=== PATIENT | male | born 1950 | race Caucasian/White ===

== ENCOUNTER → 2022-06-10 | Outpatient (CLI) | payer BC ==
[~2022-06-10] MED LIST: ASPIR 8181 MG PO; ASPIRIN81 MG PO; ATORVASTATIN CA20 MG PO; CLOPIDOGREL75 MG PO; CRESTOR20 MG PO; NEXIUM40 MG PO; NITROSTAT0.4 MG SL; PREDNISONE 20 M20 MG PO; PREDNISONE10 MG PO; PRINIVIL20 MG PO; PROTONIX40 MG PO; RANEXA500 MG PO; SYNTHROID150 MCG PO; TOPROL XL25 MG PO
== END ==
LOC: HEART 5 08:42
DX: I20.0 Unstable angina (principal); R94.39 Abnormal result of other cardiovascular function study; I10 Essential (primary) hypertension; R06.02 Shortness of breath; I27.20 Pulmonary hypertension, unspecified
CPT/HCPCS: 78452; 93306; A9502; J2785

== ENCOUNTER → 2022-06-22 | Outpatient (CLI) | payer BC | LOC: EXRD 13:13 | DX: I65.29 Occlusion and stenosis of unspecified carotid artery (principal) | CPT/HCPCS: 93880 ==

== ENCOUNTER → 2022-06-24 | Outpatient (CLI) | payer BC ==
[~2022-06-24] MED LIST changes: +NORVASC5 MG PO; -PRINIVIL20 MG PO; +PROAIR HFA8.5 GM INH; +ZESTRIL30 MG PO
[2022-06-24 11:58] LABS: HEMOGLOBIN 14.5 gm/dl (14.0-17.5); RED BLOOD COUNT 5.17 M/UL (4.20-5.50); WHITE BLOOD COUNT 8.3 K/UL (4.5-11.0)
== END ==
LOC: RT 11:42
PROVIDERS: Internal Medicine Interventional Cardiology
DX: Z01.818 Encounter for other preprocedural examination (principal); R94.39 Abnormal result of other cardiovascular function study; I20.9 Angina pectoris, unspecified; E78.5 Hyperlipidemia, unspecified; E03.9 Hypothyroidism, unspecified; R55 Syncope and collapse; I34.0 Nonrheumatic mitral (valve) insufficiency
CPT/HCPCS: 36415; 80048; 85025; 85610; 85730; 93005

== ENCOUNTER → 2022-06-29 | Outpatient (CLI) | payer BC ==
[~2022-06-29] VITALS: Ht 180.3 cm; Wt 95.7 kg
== END ==
LOC: CATH 09:23
DX: I25.118 Atherosclerotic heart disease of native coronary artery with other forms of angina pectoris (principal); I10 Essential (primary) hypertension; E78.5 Hyperlipidemia, unspecified; I34.0 Nonrheumatic mitral (valve) insufficiency; I65.29 Occlusion and stenosis of unspecified carotid artery; Z79.899 Other long term (current) drug therapy
CPT/HCPCS: 99152; 99153; C1769; J0461; J1644; J2250; J2370; J3010; Q9967